=== PATIENT | male | born 2000 | race Caucasian/White ===

== ENCOUNTER 2018-08-09 18:45 | Emergency (ER) | payer OTHER, SELFPAY ==
[2018-08-09 18:49] VITALS: BP 122/72; PULSE 85; RESP 18; TEMP 36.7; O2SAT 96
--- NOTE | 2018-08-09 18:58 | W.ED.GENAD ---
Discharge Plan Disposition Patient Disposition: HOME Condition: Fair Discharge Details Chief Complaint: Nausea/Vomit/Diar Clinical Impression: Nausea & vomiting Primary Care Provider: Izzy,Local ED Provider: Joaquina Parker Home Meds and New Rx's Prescriptions: New ondansetron 4 mg tablet,disintegrating 4 mg PO QID PRN (Reason: nausea and vomiting) Qty: 10 RF: 0 Continued fluoxetine [Prozac] 10 mg Capsule 10 mg PO DAILY RF: 0 dextroamphetamine-amphetamine [Adderall XR] 10 mg Capsule,Extended Release 24hr 10 mg PO PRN PRNRF: 0 Discharge Instructions Instructions: Acute Nausea and Vomiting (ED) Additional Instructions: Encourage hydration. Zofran as prescribed for nausea. Advance diet slowly and as tolerated. If you develop fevers, abdominal pain or develop other new/worsening symptoms please seek care urgently once again. Please follow up at the [facility] Tuesday if not improved. [phone] Discharge Data Discharge Date/Time-TO BE ENTERED AT DEPARTURE: 08/09/18 21:00 Medical Decision Making Patient is a 18 year old male presenting today with c/c of nausea and vomiting that began this afternoon. No abdominal pain. No change in bowel habits. No blood in stool or emesis. Has vomited x 3, typically after eating. Has been tolerating fluids well. No fevers/chills. No previous abdominal surgeries. Reports he has history of IBS. Concerned he may have diverticulitis. He has had EGD and colonoscopy, reports it has been several years, for chronic abdominal pain, this lead to diagnosis of IBS. Patient appears nontoxic, hydrating well orally. Abdomen is soft and nontender. Denies nausea currently. Discussed treatment options with [facility] patient. As he is hydrating well, do not feel that IV hydration is needed at this time. Abdomen is soft with no peritoneal findings, no imaging is warranted at this time. Will obtain labs to evaluate for any possible electrolyte abnormalities, will give ODT Zofran. Discussed plan with patient who is in agreement. While handwriting expert was drawing blood he suddenly insisted the needle be removed. During this began having nausea and vomited x 1. She advised that they will be able to run a CMP but not enough blood was collected for CBC. I did discuss this with the patient what may be missing. At this point, he is refer the Zofran helped with nausea. He continues to be hydrating well here. Appears much calmer. Patient I discussed laboratory evaluation. No significant electrolyte abnormalities. His lipase is 3 points over elevated. I did discuss this with Dr. Carpenter but as the patient is not having any discomfort, I have very low suspicion for pancreatitis do not feel that this fits clinically. Patient reports that he does smoke marijuana daily. Advised that he try to cut back as he is at risk to develop can avoid induced hyperemesis. He believes that he has had this historically. He was given strict return precautions. He will be prescribed Zofran to help with nausea. Advise follow-up with the [facility] at school if his symptoms persist over the next few days. Encouraged hydration. We discussed how to slowly advance diet. All his questions and concerns were addressed and he is in agreement with this plan HPI General Mode of arrival: ambulatory. Date/Time Provider Initiated Documentation: 08/09/18 18:58. Limitations to Documentation: no limitations. Information obtained by: patient. History of Present Illness 18 year old M presents to the emergency department with the chief complaint of nausea and vomiting, Patient started experiencing this hour(s) (6) and it has been intermittent. No relieving factors improve symptom(s), Eating worsens symptoms . Patient notes nausea/vomiting and rash (chronic rash in axilla, associaes with deoderant); denies chest pain, cough, fever/chills, headaches, loss of appetite, shortness of breath and syncope. Patient did receive the following treatments prior to arrival, none Related Data Home Medications Medication Instructions Recorded Confirmed dextroamphetamine-amphetamine 10 mg PO PRN PRN 08/09/18 08/09/18 [Adderall XR] fluoxetine [Prozac] 10 mg PO DAILY 08/09/18 08/09/18 ondansetron 4 mg PO QID PRN #10 tab 08/09/18 Previous Rx's Medication Instructions Recorded ondansetron 4 mg PO QID PRN #10 tab 08/09/18 Allergies Allergy/AdvReac Type Severity Reaction Status Date / Time No Known Allergies Allergy Unverified 08/09/18 18:55 General Stated Complaint: Nausea/Vomit/Diar RADHA: 3 Review of Systems Constitutional Reports as per HPI, Denies chills, Denies fatigue, Denies fever(s) and Denies headache(s) ENT Denies headache(s) Cardiovascular Reports as per HPI, Denies chest pain and Denies dyspnea Respiratory Denies dyspnea Gastrointestinal Reports as per HPI, Denies melena, Denies change in bowel habits, Denies change in stool character, Reports nausea and Reports vomiting (x3) Genitourinary Denies system reviewed and no additional complaints, except as docu (patient denies any change in urinary habits), Denies difficulty urinating, Denies dysuria, Denies penile discharge, Denies testicular mass and Denies testicular pain Musculoskeletal Reports as per HPI and Denies back pain Integumentary/Breasts Reports as per HPI Neurologic Denies headache(s) Endocrine Denies fatigue [facility] Social History Smoking/Tobacco Use Status: Never Exam Const General: cooperative, healthy appearing, comfortable, no acute distress and well developed Nutritional Appearance: average body habitus and well nourished Orientation: alert and awake HENMT Head: normal to inspection Mouth: moist mucous membranes Resp Effort & Inspection: normal respiratory effort, able to speak in complete sentences and no respiratory distress Auscultation: clear to auscultation bilaterally, no rales, no rhonchi and no wheezes Cardio Rate: regular rate Rhythm: regular rhythm Heart Sounds: S1 normal and S2 normal GI Inspection: normal to inspection, no abdominal wall ecchymosis, non-distended and no obesity Palpation: soft, no hepatosplenomegaly, not firm, no guarding, not rigid, nontender and No ascites Percussion: normal to percussion Auscultation: normal bowel sounds Back/Spine/Pelvis Back: no CVA tenderness Skin General skin exam: no rashes or lesions noted Trauma: no lacerations or abrasions Neuro General: alert and awake Cognition: normal cognition Speech: speech normal Gait: normal gait Psych Appearance: grossly normal and well kempt Mental Status: mental status grossly normal Speech and Movement: speech and movement normal Course Vital Signs Temperature 36.7 C 08/09/18 18:49 Pulse 85 08/09/18 18:49 Respiratory Rate 18 08/09/18 18:49 Blood Pressure 122/72 08/09/18 18:49 Pulse Oximetry 96 08/09/18 18:49 Temperature 36.7 C 08/09/18 18:49 Temperature Source Skin 08/09/18 18:49 Pulse 85 08/09/18 18:49 Respiratory Rate 18 08/09/18 18:49 Respiratory Effort 08/09/18 18:51 Blood Pressure 122/72 08/09/18 18:49 Blood Pressure Position Sitting 08/09/18 18:49 Pulse Oximetry 96 08/09/18 18:49 Oxygen Delivery Method Room Air 08/09/18 18:49 Oxygen Flow Rate 0 08/09/18 18:49 Pain Level 0 08/09/18 18:49
[2018-08-09] MEDS: Ondansetron O.D.T. 4 MG TABEF PO (19:15)
--- NOTE | 2018-08-09 19:15 | ED.GENADUL_ITS ---
Discharge Plan Disposition Patient Disposition: HOME Condition: Fair Discharge Details Chief Complaint: Nausea/Vomit/Diar Clinical Impression: Nausea & vomiting Primary Care Provider: Izzy,Local ED Provider: Joaquina Parker Home Meds and New Rx's Prescriptions: New ondansetron 4 mg tablet,disintegrating 4 mg PO QID PRN (Reason: nausea and vomiting) Qty: 10 RF: 0 Continued fluoxetine [Prozac] 10 mg Capsule 10 mg PO DAILY RF: 0 dextroamphetamine-amphetamine [Adderall XR] 10 mg Capsule,Extended Release 24hr 10 mg PO PRN PRNRF: 0 Discharge Instructions Instructions: Acute Nausea and Vomiting (ED) Additional Instructions: Encourage hydration. Zofran as prescribed for nausea. Advance diet slowly and as tolerated. If you develop fevers, abdominal pain or develop other new/worsening symptoms please seek care urgently once again. Please follow up at the [facility] Tuesday if not improved. [phone] Discharge Data Discharge Date/Time-TO BE ENTERED AT DEPARTURE: 08/09/18 21:00 Medical Decision Making Patient is a 18 year old male presenting today with c/c of nausea and vomiting that began this afternoon. No abdominal pain. No change in bowel habits. No blood in stool or emesis. Has vomited x 3, typically after eating. Has been tolerating fluids well. No fevers/chills. No previous abdominal surgeries. Reports he has history of IBS. Concerned he may have diverticulitis. He has had EGD and colonoscopy, reports it has been several years, for chronic abdominal pain, this lead to diagnosis of IBS. Patient appears nontoxic, hydrating well orally. Abdomen is soft and nontender. Denies nausea currently. Discussed treatment options with [facility] patient. As he is hydrating well, do not feel that IV hydration is needed at this time. Abdomen is soft with no peritoneal findings, no imaging is warranted at this time. Will obtain labs to evaluate for any possible electrolyte abnormalities, will give ODT Zofran. Discussed plan with patient who is in agreement. While licensed direct entry midwife was drawing blood he suddenly insisted the needle be removed. During this began having nausea and vomited x 1. She advised that they will be able to run a CMP but not enough blood was collected for CBC. I did discuss this with the patient what may be missing. At this point, he is refer the Zofran helped with nausea. He continues to be hydrating well here. Appears much calmer. Patient I discussed laboratory evaluation. No significant electrolyte abnormalities. His lipase is 3 points over elevated. I did discuss this with Dr. Carpenter but as the patient is not having any discomfort, I have very low suspi cion for pancreatitis do not feel that this fits clinically. Patient reports that he does smoke marijuana daily. Advised that he try to cut back as he is at risk to develop can avoid induced hyperemesis. He believes that he has had this historically. He was given strict return precautions. He will be prescribed Zofran to help with nausea. Advise follow-up with the [facility] at school if his symptoms persist over the next few days. Encouraged hydration. We discussed how to slowly advance diet. All his questions and concerns were addressed and he is in agreement with this plan HPI General Mode of arrival: ambulatory . Date/Time Provider Initiated Documentation: 08/09/18 18:58 . Limitations to Documentation: no limitations . Information obtained by: patient . History of Present Illness 18 year old M presents to the emergency department with the chief complaint of nausea and vomiting, Patient started experiencing this hour(s) (6) and it has been intermittent. No relieving factors improve symptom(s), Eating worsens symptoms . Patient notes nausea/vomiting and rash (chronic rash in axilla, associaes with deoderant); denies chest pain, cough, fever/chills, headaches, loss of appetite, shortness of breath and syncope. Patient did receive the following treatments prior to arrival, none Related Data Home Medications Medication Instructions Recorded Confirmed dextroamphetamine-amphetamine 10 mg PO PRN PRN 08/09/18 08/09/18 [Adderall XR] fluoxetine [Prozac] 10 mg PO DAILY 08/09/18 08/09/18 ondansetron 4 mg PO QID PRN #10 tab 08/09/18 Previous Rx's Medication Instructions Recorded ondansetron 4 mg PO QID PRN #10 tab 08/09/18 Allergies Allergy/AdvReac Type Severity Reaction Status Date / Time No Known Allergies Allergy Unverified 08/09/18 18:55 General Stated Complaint: Nausea/Vomit/Diar RADHA: 3 Review of Systems Constitutional Reports as per HPI, Denies chills, Denies fatigue, Denies fever(s) and Denies headache(s) ENT Denies headache(s) Cardiovascular Reports as per HPI, Denies chest pain and Denies dyspnea Respiratory Denies dyspnea Gastrointestinal Reports as per HPI, Denies melena, Denies change in bowel habits, Denies change in stool character, Reports nausea and Reports vomiting (x3) Genitourinary Denies system reviewed and no additional complaints, except as docu (patient denies any change in urinary habits), Denies difficulty urinating, Denies dysuria, Denies penile discharge, Denies testicular mass and Denies testicular pain Musculoskeletal Reports as per HPI and Denies back pain Integumentary/Breasts Reports as per HPI Neurologic Denies headache(s) Endocrine Denies fatigue [facility] Social History Smoking/Tobacco Use Status: Never Exam Const General: cooperative, healthy appearing, comfortable, no acute distress and well developed Nutritional Appearance: average body habitus and well nourished Orientation: alert and awake HENMT Head: normal to inspection Mouth: moist mucous membranes Resp Effort & Inspection: normal respiratory effort, able to speak in complete sentences and no respiratory distress Auscultation: clear to auscultation bilaterally, no rales, no rhonchi and no wheezes Cardio Rate: regular rate Rhythm: regular rhythm Heart Sounds: S1 normal and S2 normal GI Inspection: normal to inspection, no abdominal wall ecchymosis, non-distended and no obesity Palpation: soft, no hepatosplenomegaly, not firm, no guarding, not rigid, nontender and No ascites Percussion: normal to percussion Auscultation: normal bowel sounds Back/Spine/Pelvis Back: no CVA tenderness Skin General skin exam: no rashes or lesions noted Trauma: no lacerations or abrasions Neuro General: alert and awake Cognition: normal cognition Speech: speech normal Gait: normal gait Psych Appearance: grossly normal and well kempt Mental Status: mental status grossly normal Speech and Movement: speech and movement normal Course Vital Signs Temperature 36.7 C 08/09/18 18:49 Pulse 85 08/09/18 18:49 Respiratory Rate 18 08/09/18 18:49 Blood Pressure 122/72 08/09/18 18:49 Pulse Oximetry 96 08/09/18 18:49 Temperature 36.7 C 08/09/18 18:49 Temperature Source Skin 08/09/18 18:49 Pulse 85 08/09/18 18:49 Respiratory Rate 18 08/09/18 18:49 Respiratory Effort 08/09/18 18:51 Blood Pressure 122/72 08/09/18 18:49 Blood Pressure Position Sitting 08/09/18 18:49 Pulse Oximetry 96 08/09/18 18:49 Oxygen Delivery Method Room Air 08/09/18 18:49 Oxygen Flow Rate 0 08/09/18 18:49 Pain Level 0 08/09/18 18:49
[2018-08-09 20:34] LABS: ALT 29 U/L (12-78); AST 20 U/L (15-37); Albumin 4.4 g/dL (3.4-5.0); Alkaline Phosphatase 83 U/L (46-116); Anion Gap 8.7 mmol/L (3-11); BUN 8 mg/dL (7-18); Bilirubin, Total 1.5 mg/dL (0.2-1.0); CO2 29.3 mmol/L (21.0-32.0); CREATININE 0.62 mg/dL (0.70-1.30); Chloride 101 mmol/L (98-107); Glucose 92 mg/dL (70-100); Lipase 396 U/L (73-393); Potassium 4.2 mmol/L (3.5-5.1); Sodium 139 mmol/L (136-145); Total Protein 7.6 g/dL (6.4-8.2)
[2018-08-09 21:00] VITALS: BP 122/72; PULSE 85; RESP 18; TEMP 36.7; O2SAT 96
[2018-08-09] MEDS: Ondansetron O.D.T. 4 MG TABEF 12 MG PO (21:00)
== END 2018-08-09 21:00 | disposition home or self-care (01) ==
PROVIDERS: Emergency Provider Physician Assistant
DX: R11.2 Nausea with vomiting, unspecified (principal)
CPT/HCPCS: 36415; 80053; 83690; 99283; 85025

== ENCOUNTER 2019-07-05 17:46 | Emergency (ER) | payer OTHER, SELFPAY ==
[2019-07-05 18:03] VITALS: BP 123/82; PULSE 64; RESP 16; TEMP 36.9; O2SAT 97
[2019-07-05] MEDS: Normal Saline 1,000 ML 1000 ML IV (18:43)
[2019-07-05 18:49] LABS: Abs Immature Grans 0.01 k/cumm (0.0-0.09); Absolute Basophil Count 0.03 k/cumm (0.0-0.2); Absolute Eosinophil Count 0.14 k/cumm (0.0-0.7); Absolute Lymphocyte Count 1.24 k/cumm (1.2-3.4); Absolute Monocyte Count 0.58 k/cumm (0.11-0.7); Absolute Neutrophil Count 4.68 k/cumm (1.2-6.7); Basophils % 0.4; Eosinophils % 2.1; HCT 43.7 % (40.0-50.0); HGB 15.4 g/dL (13.5-17.5); Immature Grans % 0.1; Lymphocytes % 18.6; Mean Corp. HGB Concentration 35.2 g/dL (32.0-36.0); Mean Corpuscular Hemoglobin 29.8 pg (27.0-33.0); Mean Corpuscular Volume 84.5 fL (80-95); Mean Platelet Volume 9.8 fL (8.0-11.0); Monocytes % 8.7; Neutrophils % 70.1; Platelet Count 259 x1000/uL (130-400); RBC 5.17 m/cumm (4.50-6.00); RBC Distribution Width 12.8 % (11.8-14.1); White Blood Cell Count 6.68 k/cumm (4.4-10.8)
[2019-07-05 18:58] LABS: ALT 25 U/L (16-63); AST 21 U/L (15-37); Albumin 4.2 g/dL (3.4-5.0); Alkaline Phosphatase 64 U/L (46-116); Anion Gap 6.5 mmol/L (3-11); BUN 9 mg/dL (7-18); Bilirubin, Total 0.8 mg/dL (0.2-1.0); CO2 28.5 mmol/L (21.0-32.0); CREATININE 0.66 mg/dL (0.70-1.30); Calcium 8.9 mg/dL (8.5-10.1); Chloride 105 mmol/L (98-107); Glucose 94 mg/dL (74-106); Magnesium 2.1 mg/dL (1.8-2.4); Sodium 140 mmol/L (136-145); Total Protein 7.6 g/dL (6.4-8.2)
--- NOTE | 2019-07-05 19:44 | ED.GENADUL_ITS ---
Discharge Plan Disposition Patient Disposition: HOME Condition: Stable Discharge Details Chief Complaint: Abd Prob Clinical Impression: Muscle twitching Primary Care Provider: Izzy,Local ED Provider: Kristin Berrios Home Meds and New Rx's Prescriptions: Continued fluoxetine [Prozac] 10 mg Capsule 10 mg PO DAILY RF: 0 dextroamphetamine-amphetamine [Adderall XR] 10 mg Capsule,Extended Release 24hr 10 mg PO PRN PRNRF: 0 Discharge Instructions Additional Instructions: Please return immediately to the emergency department if your condition worsens, does not improve as expected, or if you become otherwise concerned. It is extremely important that you call as soon as possible to make an appointment to be seen in follow-up for this visit by your primary care doctor. Medical Decision Making Rikki lester is a 19-year-old man without history of major medical problems who presented to the emergency department with left upper quadrant muscle twitching that began this morning upon waking. On exam patient is very well and nontoxic appearing. Upon palpation of the left upper quadrant there is clear intermittent twitching of the abdominal wall muscles, this does not coincide with patient's pulses, twitching occurs between every 10 seconds and 1 minute on exam, there is no pulsatile mass. Concern for possible metabolic/electrolyte derangement given heavy alcohol use. Exam/history is not consistent with aortic aneurysm or other acute aortic pathology, other acute emergent life-threatening process. Given patient's concern, [id number] bedside ultrasound performed to reassure patient, aorta with normal caliber, no dissection throughout. Labs nondiagnostic. I had a lengthy discussion with the patient regarding return to emergency department precautions, home care, and importance of outpatient follow-up. Patient placed on care management list for PCP. Patient verbalized understanding of the plan. All questions were answered. Patient was discharged home with clear plan for outpatient follow-up. Medical Records Medical records reviewed: Yes I reviewed the patient's medical records. Lab Data Lab results reviewed: Yes I reviewed the patient's lab results. Labs: Laboratory Tests Range/Units 07/05/19 07/05/19 18:39 18:39 WBC (4.4-10.8) k/cumm 6.68 RBC (4.50-6.00) m/cumm 5.17 Hgb (13.5-17.5) g/dL 15.4 Hct (40.0-50.0) % 43.7 MCV (80-95) fL 84.5 MCH (27.0-33.0) pg 29.8 MCHC (32.0-36.0) g/dL 35.2 RDW (11.8-14.1) % 12.8 Plt Count (130-400) x1000/uL 259 MPV (8.0-11.0) fL 9.8 Immature Gran % 0.1 Neutrophils % 70.1 Lymphocytes % 18.6 Monocytes % 8.7 Eosinophils % 2.1 Basophils % 0.4 Absolute Neutrophils (1.2-6.7) k/cumm 4.68 Absolute Lymphocytes (1.2-3.4) k/cumm 1.24 Absolute Monocytes (0.11-0.7) k/cumm 0.58 Absolute Eosinophils (0.0-0.7) k/cumm 0.14 Absolute Basophils (0.0-0.2) k/cumm 0.03 Sodium (136-145) mmol/L 140 Potassium (3.5-5.1) mmol/L 4.0 Chloride (98-107) mmol/L 105 Carbon Dioxide (21.0-32.0) mmol/L 28.5 Anion Gap (3-11) mmol/L 6.5 BUN (7-18) mg/dL 9 Creatinine (0.70-1.30) mg/dL 0.66 L Estimated GFR/1.73 m2 (mL/min/1.73m2) >= 60.00 Glucose (74-106) mg/dL 94 Calcium (8.5-10.1) mg/dL 8.9 Magnesium (1.8-2.4) mg/dL 2.1 Total Bilirubin (0.2-1.0) mg/dL 0.8 AST (15-37) U/L 21 ALT (16-63) U/L 25 Alkaline Phosphatase (46-116) U/L 64 Total Protein (6.4-8.2) g/dL 7.6 Albumin (3.4-5.0) g/dL 4.2 HPI General Mode of arrival: ambulatory . Date/Time Provider Initiated Documentation: 07/05/19 18:06 . Limitations to Documentation: no limitations . Information obtained by: patient, RN notes reviewed and old records reviewed . HPI Narrative: Rikki Pleitez is a 19-year-old man without reported history of major medical problems presenting to the emergency department with pulsing in his stomach. Patient reports that he noticed this morning directly after waking up that he felt something pulsing in his left upper stomach. Patient reports that sensation has been ongoing throughout the day, waxing and waning in frequency. Patient reports that he has no other symptoms, and he denies any pain. No fevers, no vomiting, no other pulsing/twitching sensations, no numbness, no weakness. No recent illness. Has been eating and drinking as usual. No recent travel. Patient reports that he has not had similar symptoms in the past. Patient states that he uses marijuana and drinks 4 beers per day. Patient reports that his dad is a respite coordinator and was concerned that he should have an ultrasound to evaluate blood vessels in his abdomen. Related Data Home Medications Medication Instructions Recorded Confirmed dextroamphetamine-amphetamine 10 mg PO PRN PRN 08/09/18 07/05/19 [Adderall XR] fluoxetine [Prozac] 10 mg PO DAILY 08/09/18 07/05/19 Allergies Allergy/AdvReac Type Severity Reaction Status Date / Time No Known Allergies Allergy Unverified 07/05/19 18:06 General Stated Complaint: Abd Prob RADHA: 3 Review of Systems Narrative: Constitutional: denies fevers Eyes: denies eye pain ENT: denies facial pain, dental pain, sore throat Cardiovascular: denies chest pain, edema Respiratory: denies SOB, cough GI: denies abdominal pain, vomiting, diarrhea : denies flank pain MSK: denies back pain, neck pain, arthralgias, myalgias Skin: denies rash Neuro: denies headaches, numbness, weakness, reports pulsing/twitching [facility] Medical History ADHD (Acute) Depressed (Chronic) IBS (irritable bowel syndrome) (Chronic) Social History Smoking/Tobacco Use Status: Current every day Tobacco Type: e-cigarettes Alcohol Intake: current Alcohol Intake frequency: 3 or more drinks per day Alcohol type: beer Drug use: Daily Substance use type: marijuana Do you feel safe in your relationship?: Yes Additional Social history: pt is not alone to assess privately Exam Narrative Exam Narrative: Constitutional: well and [id number], pleasant, conversing normally HENT: head atraumatic/normocephalic/normal inspection, mucous membranes moist Eyes: conjunctiva normal, sclera normal, pupils 3mm b/l Neck: no stridor, normal ROM, trachea midline Chest: normal inspection Resp: normal work of breathing, LCTAB Cardio: normal rate, normal rhythm, no murmur appreciated GI: abdomen soft, non-tender, non-distended. Intermittent muscle fasciculation occurring at not less than 10-second interval present left upper quadrant, twitching does not coincide with patient's pulse, there is no pulsatile mass Skin: warm, dry, normal color, no rash Neuro: alert, not altered, grossly non-focal, normal tone Ext: no edema Psych: normal mood, normal affect, normal behavior Course Vital Signs Vital signs: Vital Signs Temperature 36.9 C 07/05/19 18:03 Pulse 64 07/05/19 18:03 Respiratory Rate 16 07/05/19 18:03 Blood Pressure 123/82 07/05/19 18:03 Pulse Oximetry 97 07/05/19 18:03 Temperature 36.9 C 07/05/19 18:03 Temperature Source Skin 07/05/19 18:03 Pulse 64 07/05/19 18:03 Respiratory Rate 16 07/05/19 18:03 Respiratory Effort Non-Labored 07/05/19 18:06 Blood Pressure 123/82 07/05/19 18:03 Pulse Oximetry 97 07/05/19 18:03 Pain Level 1 07/05/19 18:03 Lab/Test Results Lab/Test Results: Laboratory Tests Range/Units 07/05/19 07/05/19 18:39 18:39 WBC (4.4-10.8) k/cumm 6.68 RBC (4.50-6.00) m/cumm 5.17 Hgb (13.5-17.5) g/dL 15.4 Hct (40.0-50.0) % 43.7 MCV (80-95) fL 84.5 MCH (27.0-33.0) pg 29.8 MCHC (32.0-36.0) g/dL 35.2 RDW (11.8-14.1) % 12.8 Plt Count (130-400) x1000/uL 259 MPV (8.0-11.0) fL 9.8 Immature Gran % 0.1 Neutrophils % 70.1 Lymphocytes % 18.6 Monocytes % 8.7 Eosinophils % 2.1 Basophils % 0.4 Absolute Neutrophils (1.2-6.7) k/cumm 4.68 Absolute Lymphocytes (1.2-3.4) k/cumm 1.24 Absolute Monocytes (0.11-0.7) k/cumm 0.58 Absolute Eosinophils (0.0-0.7) k/cumm 0.14 Absolute Basophils (0.0-0.2) k/cumm 0.03 Sodium (136-145) mmol/L 140 Potassium (3.5-5.1) mmol/L 4.0 Chloride (98-107) mmol/L 105 Carbon Dioxide (21.0-32.0) mmol/L 28.5 Anion Gap (3-11) mmol/L 6.5 BUN (7-18) mg/dL 9 Creatinine (0.70-1.30) mg/dL 0.66 L Estimated GFR/1.73 m2 (mL/min/1.73m2) >= 60.00 Glucose (74-106) mg/dL 94 Calcium (8.5-10.1) mg/dL 8.9 Magnesium (1.8-2.4) mg/dL 2.1 Total Bilirubin (0.2-1.0) mg/dL 0.8 AST (15-37) U/L 21 ALT (16-63) U/L 25 Alkaline Phosphatase (46-116) U/L 64 Total Protein (6.4-8.2) g/dL 7.6 Albumin (3.4-5.0) g/dL 4.2
== END 2019-07-05 19:50 | disposition home or self-care (01) ==
PROVIDERS: Emergency Provider Student in an Organized Health Care Education/Training Program
DX: R25.3 Fasciculation (principal)
CPT/HCPCS: 36415; 80053; 99283; 83735; 85025